=== PATIENT | female | born 1985 | race Two or more races ===

== ENCOUNTER 2020-10-02 07:28 | Emergency (ER) | payer OTHER ==
[~2020-10-02] VITALS: Ht 165.1 cm; Wt 63.6 kg
[2020-10-02] MEDS ORDERED: PredniSONE 20 MG TABLET PO ONE (08:45)
[2020-10-02] MEDS ORDERED: DiphenhydrAMINE HCL 50 MG/ML VIAL IM ONE (08:45)
[2020-10-02 09:57] VITALS: BP 117/74
== END 2020-10-02 09:58 | disposition home or self-care (01) ==
LOC: EMS 07:36
DX: T78.40XA Allergy, unspecified, initial encounter (principal); X58.XXXA Exposure to other specified factors, initial encounter
CPT/HCPCS: 96372; 99283; J1200; J7512